=== PATIENT | female | born 1930 | race Hispanic/Latino ===

== ENCOUNTER 2017-11-27 17:33 | Emergency (ER) | payer BC, MEDICARE ==
[2017-11-27 17:54] VITALS: TEMP 97.8
[2017-11-27 18:26] LABS: BASO # 0.05 K/mm3 (0.0-2.0); BASO % 0.4 % (0.0-3.0); EOS # 0.2 (0.0-0.7); EOS % 1.4 % (1.5-5.0); GRAN # 9.51 (1.4-6.5); GRAN % 71.8 % (50.0-68.0); HEMOGLOBIN 12.6 g/dL (12.0-16.0); LYMPH # 2.3 (1.2-3.4); LYMPH % 17.6 % (22.0-35.0); MEAN CELL VOLUME 91.8 fl (80.0-105.0); MEAN CORPUSCULAR HEMOGLOBIN 30.5 pg (25.0-35.0); MEAN CORPUSCULAR HGB CONC 33.2 g/dl (31.0-37.0); MEAN PLATELET VOLUME 9.4 fl (7.0-11.0); MONO # 1.2 (0.1-0.6); MONO % 8.8 % (1.0-6.0); RBC 4.13 10^6/uL (3.5-6.1); RED CELL DISTRIBUTION WIDTH 15.2 % (11.5-14.5); WHITE BLOOD COUNT 13.2 10^3/ul (4.5-11.0)
[2017-11-27 18:32] LABS: ALB/GLOB RATIO 1.3 (1.1-1.8); ALBUMIN 4.1 g/dL (3.0-4.8); ALT/SGPT 30 U/L (7-56); AST/SGOT 27 U/L (14-36); BLOOD UREA NITROGEN 22 mg/dL (7-21); CALCIUM 9.2 mg/dL (8.4-10.5); GFR AFRICAN-AMERICAN > 60; GFR NON-AFRICAN AMERICAN > 60
[2017-11-27 18:33] LABS: PARTIAL THROMBOPLASTIN TIME 24.6 Seconds (25.1-36.5); PROTHROMBIN TIME 12.1 SECONDS (9.4-12.5)
[2017-11-27 18:42] LABS: TROPONIN I < 0.01 ng/mL
--- NOTE | 2017-11-27 19:33 | ED PDOC ---
Arrival/HPI - General Chief Complaint: Trauma Time Seen by Provider: 11/27/17 18:36 - History of Present Illness Narrative History of Present Illness (Text): 87 y/o F p/w fall earlier today. Patient states she fell down about 7 steps. Denies any significant pain but does note pain to L sided ribs when moving L shoulder. Denies diplopia, vomiting, confusion, blurry vision, numbness, weakness, neck pain, abdominal pain, chest pain, palpitations, dyspnea, malocclusion of jaw. Accompanied in ED by her 2 nephews, both physicians. Past Medical History - Infectious Disease Hx of Infectious Diseases: None - Reproductive Menopause: Yes - Cardiac Hx Cardiac Disorders: No - Pulmonary Hx Respiratory Disorders: No - Neurological Hx Neurological Disorder: No - HEENT Hx HEENT Disorder: No - Renal Hx Renal Disorder: No - Endocrine/Metabolic Hx Endocrine Disorders: No - Hematological/Oncological Hx Blood Disorders: No - Integumentary Hx Dermatological Disorder: No - Musculoskeletal/Rheumatological Hx Musculoskeletal Disorders: No - Gastrointestinal Hx Gastrointestinal Disorders: No - Genitourinary/Gynecological Hx Genitourinary Disorders: Yes Hx Incontinence: Yes - Psychiatric Hx Psychophysiologic Disorder: No Hx Substance Use: No - Surgical History Other/Comment: L shoulder r/p - Anesthesia Hx Anesthesia: Yes Hx Anesthesia Reactions: No Family/Social History Family/Social History: Unknown Family HX Smoking Status: Never Smoked Hx Alcohol Use: No Hx Substance Use: No Allergies/Home Meds Allergies/Adverse Reactions: Allergies No Known Allergies Allergy (Verified 11/27/17 17:44) Home Medications: Home Meds Medication Instructions Recorded Confirmed No Known Home Med 11/27/17 11/27/17 Review of Systems - Physician Review All systems were reviewed & negative as marked: Yes - Review of Systems Respiratory: absent: SOB Cardiovascular: absent: Chest Pain Physical Exam - Physical Exam Narrative Physical Exam (Text): Gen: NAD Head: NC/AT Eyes: PERRL, EOMI without diplopia ENT: MMM Neck: No midline tenderness. Chest: L thoracic tenderness without overlying ecchymosis or deformity or crepitus, no clavicular tenderness. CV: Regular rate. Lungs: Equal breath sounds bilaterally. Abd: Soft, nontender Back: No midline tenderness. Pelvis: Stable. FROM. Extremities: FROM, no swelling, no tenderness. Neuro: Alert, no focal deficit. Vital Signs Temp Pulse Resp BP Pulse Ox 11/27/17 21:31 76 18 150/46 L 98 11/27/17 19:51 80 20 160/65 H 99 11/27/17 17:52 97.8 F 68 17 172/93 H 97 Medical Decision Making ED Course and Treatment: Patient declined pain medication. Images were preliminarily viewed by Dr. Jeremías Miranda, will take patient home. I informed him I will page if any positive findings on reports. Called Dr. Pardo, informed of clavicle and rib fractures. EXAM: XR Left Shoulder Complete, 2 or More Views Dictated and Authenticated by: Tejinder Kinsey MD 11/27/2017 9:38 PM IMPRESSION: 1. There is a fracture of the lateral aspect of the clavicle. 2. The glenoid component of the left shoulder prosthesis is superiorly positioned, with narrowing of the subacromial space. Sclerotic changes are also visualized involving the acromion process. 3. A small ossific loose body is identified adjacent to the acromion process, which may be posttraumatic. 4. Additional findings described above. EXAM: XR Left Ribs, 2 Views Dictated and Authenticated by: Tejinder Kinsey MD 11/27/2017 9:33 PM IMPRESSION: 1. Fractures are identified of the anterior left third and fourth ribs, with possible fracture of the anterior left fifth rib. 2. Left basilar atelectatic change/infiltrate is visualized. EXAM: CT Cervical Spine Without Intravenous Contrast Dictated and Authenticated by: Tejinder Kinsey MD 11/27/2017 9:29 PM IMPRESSION: 1. No acute cervical spine fracture. 2. There is grade I anterolisthesis of C3 on C4 and C4 on C5, with slight retrolisthesis of C5 on C6. There is loss of the normal cervical lordosis. 3. Spondylosis is visualized at multiple cervical levels. Mild narrowing of the thecal sac is identified at C5-6, with moderate narrowing of the thecal sac at C3-4. Right neural foraminal narrowing is identified at C5-6. These findings can be further evaluated with MRI. 4. There is a hypodense right thyroid lobe nodule measuring 0.9 x 0.6 cm. 5. The right submandibular gland is asymmetrically smaller than the right side. A calcification or sialolith is identified superomedial to the right similarly. EXAM: CT Head Without Intravenous Contrast Dictated and Authenticated by: Tejinder Kinsey MD 11/27/2017 9:19 PM IMPRESSION: 1. There is mild soft tissue swelling/subgaleal hematoma involving the left posterior superior scalp. 2. No acute intracranial hemorrhage or acute territorial type infarct. 3. There are scattered foci of hypodensity within the cerebral white matter, likely representing small vessel ischemic disease in a patient this age. 4. Mild atrophy 11/27/17 22:28 - Lab Interpretations Lab Results: 11/27/17 18:11 11/27/17 18:11 Lab Results 11/27/17 18:11: Sodium 138, Potassium 3.9, Chloride 104, Carbon Dioxide 26, Anion Gap 13, BUN 22 H, Creatinine 0.8, Est GFR ( Amer) > 60, Est GFR ( Non-Af Amer) > 60, Random Glucose 107, Calcium 9.2, Total Bilirubin 0.5, AST 27 , ALT 30, Alkaline Phosphatase 64, Lactate Dehydrogenase 551, Total Creatine Kinase 173, Troponin I < 0.01, Total Protein 7.1, Albumin 4.1, Globulin 3.0, Albumin/Globulin Ratio 1.3 11/27/17 18:11: PT 12.1, INR 1.00, APTT 24.6 L 11/27/17 18:11: WBC 13.2 H, RBC 4.13, Hgb 12.6, Hct 37.9, MCV 91.8, MCH 30.5, MCHC 33.2, RDW 15.2 H, Plt Count 318, MPV 9.4, Gran % 71.8 H, Lymph % (Auto) 17.6 L, [place] % (Auto) 8.8 H, Eos % (Auto) 1.4 L, Baso % (Auto) 0.4, Gran # 9.51 H, Lymph # 2.3, [place] # 1.2 H, Eos # 0.2, Baso # 0.05 - RAD Interpretation Radiology Orders: 11/27/17 18:56 HEAD W/O CONTRAST [CT] Stat CHEST TWO VIEWS (PA/LAT) [RAD] Stat RIBS LEFT [RAD] Stat 11/27/17 19:10 CERVICAL SPINE W/O CONTRAST [CT] Stat SHOULDER LEFT [RAD] Stat Disposition/Present on Arrival - Present on Arrival Any Indicators Present on Arrival: No History of DVT/PE: No History of Uncontrolled Diabetes: No Urinary Catheter: No History of Decub. Ulcer: No History Surgical Site Infection Following: None - Disposition Have Diagnosis and Disposition been Completed?: Yes Diagnosis: Fall, Hematoma Disposition: HOME/ ROUTINE Disposition Time: 21:21 Condition: STABLE Discharge Instructions (ExitCare): Hematoma (ED) Referrals: Nikolay Arambula MD [Primary Care Provider] - Follow up with primary Forms: [employer] ([place]e)
--- NOTE | 2017-11-27 21:20 | CT ---
EXAM: CT Head Without Intravenous Contrast EXAM DATE/TIME: 11/27/2017 6:56 PM CLINICAL HISTORY: The patient age is 87 years old and is female; Injury or trauma; Fall; Initial encounter; Concussion / head injury; Additional info: Fell down steps Facility exam id and description: Ct heads head w/o contrast TECHNIQUE: Axial computed tomography images of the head/brain without intravenous contrast. All CT scans at this facility use one or more dose reduction techniques, viz.: automated exposure control; ma/kV adjustment per patient size (including targeted exams where dose is matched to indication; i.e. head); or iterative reconstruction technique. Coronal and sagittal reformatted images were created and reviewed. COMPARISON: No relevant prior studies available. FINDINGS: Brain: There are scattered foci of hypodensity within the cerebral white matter, likely representing small vessel ischemic disease in a patient this age. There are calcifications within the globus pallidus bilaterally, which are likely physiologic. The acuity of the white matter disease is indeterminate. The white-gamez differentiation is preserved demonstrating no acute territorial type infarct. There is mild prominence of the sulci, compatible with atrophy. No acute intracranial hemorrhage is seen. Midline shift: There is no midline shift. Ventricles: There is mild ventricular megaly. Bones/joints: The calvarium demonstrates no evidence for a depressed fracture. Soft tissues: There is mild soft tissue swelling/subgaleal hematoma involving the left posterior superior scalp. Vasculature: There is atherosclerotic calcification of the cavernous internal carotid arteries and distal vertebral arteries. Sinuses: Unremarkable as visualized. No acute sinusitis. Mastoid air cells: No mastoid effusion. IMPRESSION: 1. There is mild soft tissue swelling/subgaleal hematoma involving the left posterior superior scalp. 2. No acute intracranial hemorrhage or acute territorial type infarct. 3. There are scattered foci of hypodensity within the cerebral white matter, likely representing small vessel ischemic disease in a patient this age. 4. Mild atrophy.
--- NOTE | 2017-11-27 21:29 | CT ---
EXAM: CT Cervical Spine Without Intravenous Contrast EXAM DATE/TIME: 11/27/2017 7:10 PM CLINICAL HISTORY: The patient age is 87 years old and is female; Injury or trauma; Fall; Initial encounter; Concussion /head injury Facility exam id and description: Ct csps cervical spine w/o contrast TECHNIQUE: Axial computed tomography images of the cervical spine without intravenous contrast. All CT scans at this facility use one or more dose reduction techniques, viz.: automated exposure control; ma/kV adjustment per patient size (including targeted exams where dose is matched to indication; i.e. head); or iterative reconstruction technique. Coronal and sagittal reformatted images were created and reviewed. COMPARISON: No relevant prior studies available. FINDINGS: Vertebrae: No acute cervical spine fracture. There is grade I anterolisthesis of C3 on C4 and C4 on C5, with slight retrolisthesis of C5 on C6. There is loss of the normal cervical lordosis. The facet alignment is preserved bilaterally. The occipital condyles and C1-C2 articulations appear intact. Discs/spinal canal/neural foramina: Spondylosis is visualized at multiple cervical levels. Mild narrowing of the thecal sac is identified at C5-6, with moderate narrowing of the thecal sac at C3-4. Right neural foraminal narrowing is identified at C5-6. Soft tissues: The prevertebral soft tissues appear within normal limits. Submandibular/parotid glands: The right submandibular gland is asymmetrically smaller than the right side. A calcification or sialolith is identified superomedial to the right similarly. Thyroid: There is a hypodense right thyroid lobe nodule measuring 0.9 x 0.6 cm. Lung apices: No pneumothorax. 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 Facet arthropathy is identified at multiple cervical levels. IMPRESSION: 1. No acute cervical spine fracture. 2. There is grade I anterolisthesis of C3 on C4 and C4 on C5, with slight retrolisthesis of C5 on C6. There is loss of the normal cervical lordosis. 3. Spondylosis is visualized at multiple cervical levels. Mild narrowing of the thecal sac is identified at C5-6, with moderate narrowing of the thecal sac at C3-4. Right neural foraminal narrowing is identified at C5-6. These findings can be further evaluated with MRI. 4. There is a hypodense right thyroid lobe nodule measuring 0.9 x 0.6 cm. 5. The right submandibular gland is asymmetrically smaller than the right side. A calcification or sialolith is identified superomedial to the right similarly.
[2017-11-27 21:32] VITALS: BP 150/46; PULSE 76; RESP 18; O2SAT 98
--- NOTE | 2017-11-27 21:33 | RAD ---
EXAM: XR Left Ribs, 2 Views EXAM DATE/TIME: 11/27/2017 6:56 PM CLINICAL HISTORY: The patient age is 87 years old and is female; Pain and injury or trauma; Fall; Initial encounter; Rib area, left side; Blunt trauma; Chest wall pain; Additional info: Fell down steps Facility exam id and description: Rad ribs l ribs left TECHNIQUE: Frontal and oblique views of the left ribs. COMPARISON: No relevant prior studies available. FINDINGS: Lungs: Left basilar atelectatic change/infiltrate is visualized. Pleural space: No left pleural effusions. No left pneumothorax. Bones/joints: Fractures are identified of the anterior left third and fourth ribs, with possible fracture of the anterior left fifth rib. Osteopenia. A left shoulder prosthesis is visualized. There is a limited evaluation of the left lower ribs. Other findings: Significant costochondral calcification is visualized. IMPRESSION: 1. Fractures are identified of the anterior left third and fourth ribs, with possible fracture of the anterior left fifth rib. 2. Left basilar atelectatic change/infiltrate is visualized.
--- NOTE | 2017-11-27 21:38 | RAD ---
EXAM: XR Left Shoulder Complete, 2 or More Views EXAM DATE/TIME: 11/27/2017 7:10 PM CLINICAL HISTORY: The patient age is 87 years old and is female; Pain and injury or trauma; Fall; Initial encounter; Blunt trauma (contusions or hematomas; Shoulder; Left Facility exam id and description: Todd lazarol shoulder left TECHNIQUE: Two or more views of the left shoulder. COMPARISON: No relevant prior studies available. FINDINGS: Bones/joints: Cortical discontinuity is identified of the lateral aspect of the left clavicle, consistent with fracture. The glenoid component of the left shoulder prosthesis is superiorly positioned, with narrowing of the subacromial space. Sclerotic changes are also visualized involving the acromion process. A small ossific loose body is identified adjacent to the acromion process, which may be post-traumatic. Postoperative changes are identified, with a left shoulder prosthesis. 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 There is no dislocation of this joint. For discussion of findings involving the left ribs, refer to the rib x-ray report from the same day. Soft tissues: No visible soft tissue swelling. IMPRESSION: 1. There is a fracture of the lateral aspect of the clavicle. 2. The glenoid component of the left shoulder prosthesis is superiorly positioned, with narrowing of the subacromial space. Sclerotic changes are also visualized involving the acromion process. 3. A small ossific loose body is identified adjacent to the acromion process, which may be post-traumatic. 4. Additional findings described above.
--- NOTE | 2017-11-28 10:01 | RAD ---
HISTORY: Fall down steps COMPARISON: 07/21/2014 TECHNIQUE: Chest PA and lateral FINDINGS: LUNGS: No active pulmonary disease. PLEURA: No significant pleural effusion identified. No pneumothorax apparent. CARDIOVASCULAR: Mild cardiomegaly OSSEOUS STRUCTURES: No significant abnormalities. VISUALIZED UPPER ABDOMEN: Normal. OTHER FINDINGS: None. IMPRESSION: No active disease.
--- NOTE | 2017-11-28 20:33 | CARD ---
APPROVED REPORT EKG Measurement Heart [id number] <Conclusion> Normal sinus rhythm T wave abnormality, consider anterior ischemia Abnormal ECG
== END 2017-11-27 21:33 | disposition home or self-care (01) ==
LOC: ED 17:33
DX: S00.03XA Contusion of scalp, initial encounter (principal); W10.9XXA Fall (on) (from) unspecified stairs and steps, initial encounter